=== PATIENT | female | born 1950 | race Caucasian/White ===

== ENCOUNTER → 2016-12-20 | Outpatient (CLI) | payer OTHER | END | disposition home or self-care (01) | LOC: CT 10:00 | DX: S06.0X0A Concussion without loss of consciousness, initial encounter (principal); G44.319 Acute post-traumatic headache, not intractable; H53.8 Other visual disturbances; V89.2XXA Person injured in unspecified motor-vehicle accident, traffic, initial encounter ==

== ENCOUNTER → 2017-12-09 | Outpatient (CLI) | payer MEDICARE, MEDICAID ==
[~2017-12-09] MED LIST: CETIRIZINE10 MG PO; KLONOPIN2 M1 PO; OMEPRAZOLE40 MG PO; PROZAC40 M1 PO; TRAZODONE50 MG PO; VALTREX1000 MG PO; ZANAFLEX4 M2 PO
--- NOTE | ~2017-12-09 | PF ---
[place], [place] PULMONARY FUNCTION TEST NAME: NIKIA BELTRÁN UNIT #: [id number] ROOM: DOCTOR: FLORA SPRING MD,CB BIRTHDATE: [birth year] DOS: 12/09/2017 The study was done on 12/09/2017. ORDERED BY: Nancy Esparza DO HISTORY: The patient is noted as 67-year-old female, height of 67 inches, weight of 150 pounds, BMI 23.5. The patient's testing was done for assessment of symptoms of shortness of breath and nonproductive cough, rare wheezing. The patient does not have any past history of tobacco use. SPIROMETRY: The FVC was recorded as 2.96 liters, 88% predicted value normal. The FEV1 was 2.45 liters, 94% predicted value normal. The ratio of FEV1/FVC recorded 83%. Manual partial improvement occurred post-bronchodilator test does not meet the criteria for the patient related to FEV1 by the ATS. The flow volume loop assessment for the patient was noted with mild obstructive airway pattern. The lung volumes, thoracic gas volume recorded 79%, residual volume 84%, total lung capacity of 88%, all noted normal. The patient's airway resistance, passive conductance was noted normal; however, partial improvement occurred postbronchodilator test. Lung diffusion noted moderately decreased without correction of carbon monoxide hemoglobin values. IMPRESSION: Possibility of mild reversible obstructive lung disease such as bronchial asthma would be considered. CB HINES MD CM:PFREPORT:PULMONARY FUNCTION TEST 1512 0123 CB SPRING MD
== END | disposition home or self-care (01) ==
LOC: CP 08:37
DX: R06.02 Shortness of breath (principal)

== ENCOUNTER → 2017-12-11 | Outpatient (CLI) | payer MEDICARE, MEDICAID | END | disposition home or self-care (01) | LOC: MAMMO 12-03 10:00 | DX: Z12.31 Encounter for screening mammogram for malignant neoplasm of breast (principal); R07.9 Chest pain, unspecified ==

== ENCOUNTER → 2018-01-30 | Outpatient (CLI) | payer MEDICARE, MEDICAID ==
[~2018-01-30] MED LIST changes: +LIPITOR40 MG PO
--- NOTE | ~2018-01-30 | ST ---
[place], [place] EXERCISE STRESS TEST REPORT NAME: NIKIA BELTRÁN UNIT #: [id number] ROOM: DOCTOR: TALYA FUENTES MD BIRTHDATE: [birth year] DOS: 01/30/2018 INDICATIONS: Precordial chest pain. PROCEDURE: The patient walked for 7 minutes 51 seconds on a full Gene protocol and stopped for fatigue as well as chest pain. The resting electrocardiogram showed a right bundle branch block. With exercise, there were no further changes. Riggs treadmill score was 3.8 consistent with a moderate risk for cardiac events. One minute prior to the completion of exercise protocol, the patient was given radionuclide intravenously. IMPRESSION: 1. Adequate exercise capacity. The patient did reproduce her chest pain, but did not have diagnostic electrocardiographic changes. 2. Radionuclide injected. Please see the separately reported imaging study for further details of the patient's stress test results. TALYA FUENTES MD CM:STRESS:EXERCISE STRESS TEST REPORT 1111 0057 TALYA FUENTES MD
== END ==
LOC: CARD 04:02
DX: I45.10 Unspecified right bundle-branch block (principal); R07.9 Chest pain, unspecified; R94.39 Abnormal result of other cardiovascular function study

== ENCOUNTER → 2019-02-18 | Outpatient (CLI) | payer MEDICARE, MEDICAID | END | disposition home or self-care (01) | LOC: RAD 14:44 | DX: K59.00 Constipation, unspecified (principal); R11.10 Vomiting, unspecified; R14.0 Abdominal distension (gaseous) ==

== ENCOUNTER → 2019-05-12 | Outpatient (CLI) | payer MEDICARE, MEDICAID ==
[~2019-05-12] MED LIST changes: +AUGMENTIN 875875 MG PO; +DICYCLOMINE HYD20 MG PO; +PROTONIX20 MG PO; +RANITIDINE HCL150 M1 PO; +ZOFRAN4 MG PO
--- NOTE | ~2019-05-12 | PROC NOTE ---
[place], [place] PROCEDURE NOTE [id number] UNIT #: [id number] ROOM: DOCTOR: LIYAH RITTERANN BIRTHDATE: [birth year] DOS: 05/12/2019 MODIFIED BARIUM SWALLOW ORDERING PHYSICIAN: Nancy Esparza DO RADIOLOGIST: Dr. Fish. BACKGROUND INFORMATION: The patient is a 68-year-old female who was seen for modified barium swallow. This test was ordered to view the pharyngeal phase of the swallow and rule out aspiration. The patient was alert and able to provide her own case history information. She stated that she has sinus drainage and is experiencing a constant feeling of globus with coughing and spitting up of phlegm. She reported a history of ulcerated esophagus, approximately 10 years ago. She also reported a frequent burning in her esophagus after eating and especially in the night. She stated that she did not believe she had been diagnosed with reflux, but did state that she was recently prescribed Zantac. Patient currently eats only soft foods and soups. She reported feeling afraid to eat at times because of her symptoms. She drinks thin liquid and stated that she drinks a lot of water due to frequent xerostomia. A weight loss of 5 pounds was reported. For today's assessment, she reported no difficulty with breathing. She did state that due to her sinus drainage, she feels like she has to breathe from her mouth. She stated that she has been prescribed BiPAP to wear at night. Oral peripheral examination revealed presence of natural teeth, which were in good condition. Lingual, labial, and buccal skills were within normal limits in terms of strength, range of motion, and coordination. The patient was able to volitionally cough and swallow. METHODS AND MATERIALS USED FOR THE EXAM: The patient was positioned in the lateral plane and the exam was viewed under fluoroscopy. The patient was presented with a variety of consistencies to assess swallowing skills including applesauce mixed with barium presented in half teaspoon amounts, barium-coated cookie and sandwich taken in bite size pieces and thin liquid barium taken by cup and straw. ORAL PHASE: Unremarkable. PHARYNGEAL PHASE: Unremarkable. ESOPHAGEAL PHASE: This phase of the swallow was not formally assessed during this examination. IMPRESSIONS AND RECOMMENDATIONS: Based upon assessment results, this 68-year-old patient presents with oral and pharyngeal swallowing skills that are within normal limits with all consistencies taken. It is recommended that she receive a regular diet and thin liquids. The patient is scheduled for further upcoming testing including EGD and colonoscopy. No followup dysphagia therapy is warranted at this time. The patient was educated on results and recommendations and verbalized relief and understanding, stated that she has been concerned over the symptoms she has been experiencing. [place], [place] PROCEDURE NOTE NAME: LINDSAYANELNIKIA A UNIT #: [id number] ROOM: DOCTOR: BING RITTER BIRTHDATE: [birth year] Thank you very much for this referral. Should you have any questions regarding this patient, please contact the speech pathologist at [phone]. BING RITTER CM:PROCNOTE:PROCEDURE NOTE 1433 0420 BING RITTER
--- NOTE | ~2019-05-12 | SHMRC ---
[place], [place] [facility]APY [facility] NAME: NIKIA BELTRÁN UNIT #: [id number] ROOM: DOCTOR: RAJENDRA BATISTA DO Patient Name: NISH BELTRÁN. Date: 05/12/2019 Patient Number: [id number] Treating Therapist:Genet Bains Patient Date of : 1950 Location: [facility] Patient Reason for Visit RAD/SH Electronic Signature(s) Signed By: Date: Genet Bains 05/12/2019 14:28:21 Entered By: Genet Bains on 05/12/2019 14:26:37 Arrival Information Patient Name: NISH BELTRÁN. Date: 05/12/2019 Patient Number: [id number] Treating Therapist:Genet Bains Patient Date of : 1950 Location: [facility] Patient Subjective Initial evaluation completed to generate medical record. [facility] for [facility]. Electronic Signature(s) Signed By: Date: Genet Bains 05/12/2019 14:28:21 Entered By: Genet Bains on 05/12/2019 14:26:37 Medical History Patient Name: NISH BELTRÁN. Date: 05/12/2019 Patient Number: [id number] Treating Therapist:Genet Bains Patient Date of : 1950 Location: [facility] Patient Past Medical History Electronic Signature(s) Signed By: Date: Genet Bains 05/12/2019 14:28:21 Entered By: Genet Bains on 05/12/2019 14:26:37 Allergy List Patient Name: NISH BELTRÁN. Date: 05/12/2019 Patient Number: [id number] Treating Therapist:Genet Bains Patient Date of : 1950 Location: [facility] Patient Electronic Signature(s) Signed By: Date: Genet Bains 05/12/2019 14:28:21 Entered By: Genet Bains on 05/12/2019 14:26:37 Arrival Information Patient Name: NISH BELTRÁN. Date: 05/12/2019 Patient Number: [id number] Treating Therapist:Genet Bains Patient Date of : 1950 Location: [facility] Patient Subjective Initial evaluation completed to generate medical record. Refer to [facility] for further information. Electronic Signature(s) [place], [place] [facility] NAME: NIKIA BELTRÁN UNIT #: [id number] ROOM: DOCTOR: RAJENDRA BATISTA DO Signed By: Date: Genet Bains 05/12/2019 14:28:21 Entered By: Genet Bains on 05/12/2019 14:26:37 SuperBill Patient Name: NISH BELTRÁN. Date: 05/12/2019 Patient Number: [id number] Treating Therapist:Genet Bains Patient Date of : 1950 Location: [facility] Patient Visit Start Time 1:30 PM Visit End Time 2:30 PM Visit Duration 60 minutes Procedures CPT [place] Code Intervention Modifier Minutes Units 62864 [id number] MOTION FLUOROSCOPY/SWALLOW 60 1 Total Timed Minutes 0 Total Treatment Minutes 60 Electronic Signature(s) Signed By: Date: Genet Bains 05/12/2019 14:28:21 Entered By: Genet Bains on 05/12/2019 14:27:45 Chief Complaint Patient Name: NISH BELTRÁN. Date: 05/12/2019 Patient Number: [id number] Treating Therapist:Genet Bains Patient Date of : 1950 Location: [facility] Patient Reason for Visit RAD/SH Electronic Signature(s) Signed By: Date: Genet Bains 05/12/2019 14:28:21 Entered By: Genet Bains on 05/12/2019 14:26:37 Medical History Patient Name: NISH BELTRÁN. Date: 05/12/2019 Patient Number: [id number] Treating Therapist:Genet Bains Patient Date of : 1950 Location: [facility] Patient Past Medical History Electronic Signature(s) Signed By: Date: Genet Bains 05/12/2019 14:28:21 Entered By: Genet Bains on 05/12/2019 14:26:37 Allergy List Patient Name: NISH BELTRÁN. Date: 05/12/2019 Patient Number: [id number] Treating Therapist:Genet Bains Patient Date of : 1950 [facility] Patient Electronic Signature(s) Signed By: Date: [place], [place] [facility] NAME: NIKIA BELTRÁN UNIT #: [id number] ROOM: DOCTOR: RAJENDRA BATISTA DO, Maryann 05/12/2019 14:28:21 Entered By: Genet Bains on 05/12/2019 14:26:37 CM:[facility] 99 1800 IS [facility]
--- NOTE | ~2019-05-12 | SLPPOC ---
[place], [place] MANAGER WIRELESS PLAN OF CARE NAME: NIKIA BELTRÁN UNIT #: [id number] ROOM: DOCTOR: RAJENDRA BATISTA DO Patient Name: NIKIA BELTRÁN Date: 05/12/2019 Patient Date of : 1950 [facility] Start of Care: 05/12/2019 Reason for Treatment: RAD/SH Visits since start of care: 1 Primary Care Physician: KENIA MCCRAY Referring Physician: RAJENDRA BATISTA Speech-Language Pathology Initial Evaluation Plan of Care Reason for Visit RAD/SH Arrival Information Subjective Initial evaluation completed to generate medical record. Refer to [facility] for further information. Medical History Past Medical History Therapist Signature(s) Signed By: Genet Bains [facility] License #: [id number] 05/12/2019, 2:28 PM Referring Physician Signature I certify the need for these services furnished under this plan of treatment and while under my care. RAJENDRA BATISTA Date/Time CM:SLPPOC 99 99 [facility] [place]
--- NOTE | ~2019-05-12 | SLPIE ---
[place], [place] COOK CHIEF INITIAL EVALUATION NAME: NIKIA BELTRÁN UNIT #: [id number] ROOM: DOCTOR: RAJENDRA BATISTA DO Patient Name: NIKIA BELTRÁN Date: 05/12/2019 Patient Date of : 1950 [facility] Start of Care: 05/12/2019 Reason for Treatment: RAD/SH Primary Care Physician: KENIA MCCRAY Referring Physician: RAJENDRA BATISTA Speech-Language Pathology Initial Evaluation Reason for Visit RAD/ Arrival Information Subjective Initial evaluation completed to generate medical record. Refer to [employer] for further information. Medical History Past Medical History [facility] Visit Start Time 1:30 PM Visit End Time 2:30 PM Visit Duration 60 minutes Procedures CPT [place] Code Intervention Modifier Minutes Units [id number] MOTION FLUOROSCOPY/SWALLOW 60 1 36923 Total Timed Minutes 0 Total Treatment Minutes 60 Therapist Signature(s) Signed By: Genet Bains [facility] License #: [id number] 05/12/2019, 2:28 PM CM:[facility] 99 99 [facility]
--- NOTE | 2019-05-12 14:16 | NUR ---
SPEECH PATHOLOGY Outpatient MBS completed as per orders. Patient was alert and able to provide her own case history information. She stated that she has sinus drainage and is experiencing a constant feeling of globus, with coughing and spitting up phlegm. 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 She stated that she did not believe she had been diagnosed with reflux but stated that she was recently prescribed Zantac because of frequent burning in her esophagus. She currently eats only soft foods and soups. She drinks thin liquids and stated that she drinks a lot of water due to frequent xerostomia. Weight loss of five pounds was reported. Patient was assessed with puree, solids and thin liquids during assessment and displayed oral and pharyngeal swallowing skills WNL. Recommend regular diet and thin liquid. Patient is scheduled for further upcoming testing including EGD and colonoscopy. No follow up dysphagia therapy is warranted at this time. Patient was educated on results and rhianna. and verbalized relief and understanding, stated that she has been concerned over her symptoms. Dictated report to follow. Thank you for this referral. BING RITTER [employer]WORK[employer]ENS[employer] CLAIMS EXAMINER
== END | disposition home or self-care (01) ==
LOC: RAD/SH 13:30
DX: R13.10 Dysphagia, unspecified (principal)

== ENCOUNTER → 2019-05-20 | Day surgery (SDC) | payer MEDICARE, MEDICAID ==
[~2019-05-20] VITALS: Ht 170.1 cm; Wt 71.2 kg
--- NOTE | ~2019-05-20 | PROC NOTE ---
[place], [place] PROCEDURE NOTE NAME[id number] UNIT #: [id number] ROOM: DOCTOR: ANGUS CROOK MD BIRTHDATE: [birth year] DOS: 05/20/2019 PREOPERATIVE DIAGNOSES: Gastroesophageal reflux disease, constipation. POSTOPERATIVE DIAGNOSES: Esophagitis, hiatal hernia, diverticulosis. PROCEDURE: EGD with colonoscopy. ENDOSCOPIST: Angus Crook MD TRAIN STARTER: BART. ANESTHESIA: MAC. INDICATIONS: This is a 68-year-old lady with a history of GERD and constipation, who is here for the above-mentioned procedure. The procedure and its complications were explained to the patient in detail preoperatively. Complications that were discussed included, but were not limited to bleeding, esophageal perforation, stomach perforation, colon perforation, missed lesions and prolonged pain. She agreed to proceed. DESCRIPTION OF PROCEDURE: After identifying the patient, the patient was brought to the endoscopy suite and placed in left lateral position. After time-out procedure was called, IV sedation was administered by the anesthesia team and a bite block was placed and EGD was performed first. An adult gastroscope was placed through the mouth into the pharynx, esophagus, stomach and the first 2 parts of the duodenum. There was found to be esophagitis and a small hiatal hernia. On visualizing the stomach and also retroflexing the scope in the stomach, there was no evidence of gastritis or any lesions that could be visualized. The first 2 parts of the duodenum were visualized in its entirety and were found to be within normal limits. The scope was withdrawn and the findings of esophagitis and hiatal hernia were confirmed. At this point, attention was turned towards the colonoscopy. A digital rectal exam was performed, which was within normal limits. An adult colonoscope was now introduced into the anal canal and advanced sequentially into the rectum, sigmoid colon, descending colon, transverse colon, ascending colon up to the cecum. Upon reaching the cecum, the scope was withdrawn, thus the prep was found to be suboptimal in certain areas and saline was used for irrigation and was sucked out in order to better visualize the mucosa. Total withdrawal time was approximately 7 minutes. There was [id number] diverticulosis seen in the sigmoid colon, but otherwise there were no other lesions identified in the entirety of the colon. The scope was withdrawn and the patient was brought back to the recovery room in stable fashion. There were no complications. Dr. Angus Crook, the attending endoscopist, was present throughout the operating case. Based on these findings, the patient is recommended to have another colonoscopy in 10 years or sooner if she had new symptoms and should be treated for the esophagitis and GERD conservatively at present. This will be discussed with the patient in the recovery room and in the office subsequently. [place], [place] PROCEDURE NOTE NAME: JERELNIKIA Brice UNIT #: [id number] ROOM: DOCTOR: ANGUS CROOK MD BIRTHDATE: [birth year] Angus Crook MD CM:PROCNOTE:PROCEDURE NOTE 1006 0204 ANGUS CROOK MD
[2019-05-20 07:30] VITALS: BP 107/79
[2019-05-20 10:00] VITALS: BP 115/48
[2019-05-20 10:15] VITALS: BP 119/68
[2019-05-20 10:30] VITALS: BP 122/66
== END | disposition home or self-care (01) ==
LOC: SDC 05-18 09:30
DX: K57.30 Diverticulosis of large intestine without perforation or abscess without bleeding (principal); K59.00 Constipation, unspecified; K20.9 Esophagitis, unspecified; K44.9 Diaphragmatic hernia without obstruction or gangrene; E78.00 Pure hypercholesterolemia, unspecified; F32.9 Major depressive disorder, single episode, unspecified; F41.9 Anxiety disorder, unspecified; K21.9 Gastro-esophageal reflux disease without esophagitis; J45.909 Unspecified asthma, uncomplicated; G47.30 Sleep apnea, unspecified; Z90.710 Acquired absence of both cervix and uterus; Z90.49 Acquired absence of other specified parts of digestive tract; Z98.890 Other specified postprocedural states; Z82.49 Family history of ischemic heart disease and other diseases of the circulatory system; Z83.3 Family history of diabetes mellitus; Z80.1 Family history of malignant neoplasm of trachea, bronchus and lung; Z79.82 Long term (current) use of aspirin; Z79.899 Other long term (current) drug therapy

== ENCOUNTER 2019-05-27 16:31 | Emergency (ER) | payer MEDICARE, MEDICAID ==
[~2019-05-27] VITALS: Ht 170.1 cm; Wt 68.0 kg
[~2019-05-27 16:31] MED LIST changes: -AUGMENTIN 875875 MG PO; -DICYCLOMINE HYD20 MG PO; -ZOFRAN4 MG PO
[2019-05-27 17:20] LABS: BASO % 0.3 % (0.0-1.0); EOS # 0.1 10*3/uL (0.0-0.4); EOS % 1.6 % (1.0-4.0); HEMATOCRIT 39.2 % (37.0-47.0); HEMOGLOBIN 12.5 g/dl (12.0-16.0); LYMPH # 1.8 10*3/uL (1.3-4.4); LYMPH % 20.6 % (27.0-41.0); MEAN CELL VOLUME 92.2 fl (81.0-99.0); MEAN CORPUSCULAR HGB 29.4 pg (27.0-31.0); MEAN CORPUSCULAR HGB CONC 31.9 g/dl (33.0-37.0); MEAN PLATELET VOLUME 9.6 fl (9.6-12.3); MONO # 0.9 10*3/uL (0.1-1.0); MONO % 10.2 % (3.0-9.0); NEUT # 5.8 10*3/uL (2.3-7.9); NEUT % 67.1 % (47.0-73.0); PLATELET COUNT AUTOMATED 358 10*3/uL (130-400); RED BLOOD COUNT 4.25 10*6/uL (4.10-5.10); RED CELL DISTRI WIDTH 12.7 % (0-14.5); WHITE BLOOD COUNT 8.7 10*3/uL (4.8-10.8)
[2019-05-27 17:30] LABS: INTERNATIONAL NORM RATIO 0.9 (2.0-3.5)
[2019-05-27 17:34] LABS: ALBUMIN 3.3 gm/dl (3.1-4.5); ALKALINE PHOSPHATASE 58 U/L (45-117); BUN 12 mg/dl (7-24); CHLORIDE 108 mmol/L (98-107); CREATININE 0.81 mg/dL (0.55-1.02); LIPASE 103 U/L (73-393); POTASSIUM 3.6 mmol/L (3.5-5.1); SGOT/AST 14 IU/L (3-35); SGPT/ALT 25 U/L (12-78); SODIUM 140 mmol/L (136-145); TOTAL PROTEIN 7.5 gm/dL (6.4-8.2)
[2019-05-27 19:20] LABS: BILIRUBIN NEGATIVE (NEGATIVE); BLOOD TRACE-INTACT (NEGATIVE); CLARITY CLEAR (CLEAR); COLOR YELLOW (YELLOW); GLUCOSE NEGATIVE (NEGATIVE); KETONE NEGATIVE (NEGATIVE); LEUKO ESTERASE NEGATIVE (NEGATIVE); NITRITE NEGATIVE (NEGATIVE); SPECIFIC GRAVITY <= 1.005 (1.005-1.030); UROBILINOGEN 0.2 E.U./dl (0.2-1.0)
[2019-05-27 19:26] LABS: BACTERIA TRACE; EPITHELIAL CELLS 0-2; RBC 0-2 rbc/hpf (0-2); WBC 0-2 wbc/hpf (0-5)
[2019-05-27] MEDS ORDERED: ZOFRAN4 MG PO (19:45)
[2019-05-27] MEDS ORDERED: AUGMENTIN 875875 MG PO (19:45)
[2019-05-27] MEDS ORDERED: DICYCLOMINE HYD20 MG PO (19:45)
== END 2019-05-27 20:10 | disposition home or self-care (01) ==
LOC: ED 16:31
PROVIDERS: Physician Assistant
DX: K52.9 Noninfective gastroenteritis and colitis, unspecified (principal); K62.5 Hemorrhage of anus and rectum; R79.1 Abnormal coagulation profile; I10 Essential (primary) hypertension; J45.909 Unspecified asthma, uncomplicated; K21.9 Gastro-esophageal reflux disease without esophagitis; Z79.899 Other long term (current) drug therapy; Z90.49 Acquired absence of other specified parts of digestive tract; Z90.710 Acquired absence of both cervix and uterus

== ENCOUNTER 2020-01-17 11:35 | Emergency (ER) | payer MEDICARE, MEDICAID ==
[~2020-01-17 11:35] MED LIST changes: +AUGMENTIN 875875 MG PO; +DICYCLOMINE HYD20 MG PO; +ZOFRAN4 MG PO
[2020-01-17] MEDS ORDERED: ZYRTEC10 M3 PO (13:33)
[2020-01-17] MEDS ORDERED: FLONASE ALLERG9.9 ML NAS (13:33)
== END 2020-01-17 13:52 | disposition home or self-care (01) ==
LOC: ED 11:35
DX: B34.9 Viral infection, unspecified (principal); I10 Essential (primary) hypertension; J45.909 Unspecified asthma, uncomplicated; K21.9 Gastro-esophageal reflux disease without esophagitis; F32.9 Major depressive disorder, single episode, unspecified; Z79.899 Other long term (current) drug therapy

== ENCOUNTER → 2020-05-18 | Outpatient (CLI) | payer MEDICARE, MEDICAID ==
[~2020-05-18] MED LIST changes: +FLONASE ALLERG9.9 ML NAS; +ZYRTEC10 M3 PO
== END | disposition home or self-care (01) ==
LOC: RAD 08:00
PROVIDERS: ATTEND Surgery
DX: K21.9 Gastro-esophageal reflux disease without esophagitis (principal); R13.10 Dysphagia, unspecified

== ENCOUNTER → 2020-05-22 | Outpatient (CLI) | payer MEDICARE, MEDICAID ==
[~2020-05-22] MED LIST changes: +CARAFATE1 GM/10 ML PO; +CRESTOR20 M1 PO
== END | disposition home or self-care (01) ==
LOC: COVID19 06:38
PROVIDERS: ATTEND Surgery
DX: Z01.812 Encounter for preprocedural laboratory examination (principal); Z20.828 Contact with and (suspected) exposure to other viral communicable diseases

== ENCOUNTER → 2020-05-26 | Day surgery (SDC) | payer MEDICARE, MEDICAID ==
[~2020-05-26] VITALS: Ht 170.1 cm; Wt 72.6 kg
[2020-05-26 07:09] VITALS: BP 94/46
[2020-05-26 07:59] VITALS: BP 96/53
[2020-05-26 08:14] VITALS: BP 109/56
[2020-05-26 08:30] VITALS: BP 108/67
== END | disposition home or self-care (01) ==
LOC: SDC 05-23 08:00
PROVIDERS: ATTEND Surgery
DX: K21.9 Gastro-esophageal reflux disease without esophagitis (principal); K29.50 Unspecified chronic gastritis without bleeding; I10 Essential (primary) hypertension; J45.909 Unspecified asthma, uncomplicated; F41.9 Anxiety disorder, unspecified; F32.9 Major depressive disorder, single episode, unspecified; E78.00 Pure hypercholesterolemia, unspecified; G47.30 Sleep apnea, unspecified; Z98.890 Other specified postprocedural states; Z79.899 Other long term (current) drug therapy; Z83.3 Family history of diabetes mellitus; Z82.49 Family history of ischemic heart disease and other diseases of the circulatory system

== ENCOUNTER → 2021-04-12 | Outpatient (CLI) | payer MEDICARE | END | disposition home or self-care (01) | LOC: RAD 12:28 | PROVIDERS: ATTEND Family Medicine | DX: K59.00 Constipation, unspecified (principal) ==

== ENCOUNTER → 2021-05-30 | Outpatient (CLI) | payer MEDICARE | END | disposition home or self-care (01) | LOC: MAMMO 13:00 | PROVIDERS: ATTEND Family Medicine | DX: N64.4 Mastodynia (principal) ==